=== PATIENT | male | born 1980 | race Caucasian/White ===

== ENCOUNTER 2019-03-16 19:22 | Inpatient (IN) | payer MEDICARE, MEDICAID ==
[~2019-03-16 19:22] MED LIST: Potassium Chloride 40 MEQ in Sodium Chloride 0.9% 250 ML 250 ML IVPB SCH
[2019-03-16] MEDS ORDERED: Rocuronium Bromide 50 MG/5 ML VIAL ONE (19:36)
--- NOTE | 2019-03-16 20:19 | RAD ---
Chest one view HISTORY: Hyperglycemia. Overdose. FINDINGS: Cardiac silhouette is magnified by projection. Pulmonary vasculature is unremarkable. Media stinum is midline. Tip of an endotracheal catheter overlies the thoracic inlet. Nasogastric tube descends to the abdomen. Mild bibasilar linear atelectasis. No evidence of pneumothorax. IMPRESSION: Endotracheal catheter and nasogastric tube are in good radiographic position. Mild bibasilar atelectasis.
[2019-03-16 20:29] LABS: Actual Bicarbonate (HCO3a) 13.3 mEq/L (22-28); Analyzer IN Cardio ER; Calcium, Ionized 1.41 mmol/L (1.12-1.30); Carboxyhemoglobin (COHb) 0.1 gm% (0.0-3.0); Hemoglobin (Hb) 19.2 g/dL (14.0-18.0); O2 Tension (PaO2) 92.3 mmHg (80.0-100.0); Potassium - ABG Lab 2.94 mmol/L (3.70-5.30)
--- NOTE | 2019-03-16 20:45 | CT ---
CT head noncontrast HISTORY: Altered mental status. Overdose. FINDINGS: Very subtle linear hyperdensity associated with the sulci of the posterior aspect of the le ft frontal lobe and the anterior aspect of the left temporal lobe. Ventricles are unremarkable. Septum pellucidum is midline. Visualized paranasal sinuses remain well-aerated. IMPRESSION: Subtle gyriform hyperdense areas associated with the left frontal and temporal lobes favo red to represent a very small amount of subarachnoid hemorrhage. Cause is not evident. Please consider short-term CT follow-up. Findings were called to Dr. Puga in the emergency department at 2040 hours. Code CR.
[2019-03-16 20:56] LABS: Hemoglobin 18.9 g/dL (14.0-18.0); Mean Corpuscular HGB CONC 30.2 g/dL (32.0-36.0); Mean Corpuscular Hemoglobin 31.2 pg (27.0-31.0); Platelet Count 208 thou/uL (130-400); RBC Distribution Width 13.2 % (11.5-14.5); Red Blood Cell (RBC) Count 6.06 mill/uL (4.70-6.10); White Blood Cell (WBC) Count 15.9 thou/uL (4.8-10.8)
[2019-03-16 21:08] LABS: Acetaminophen Less than 6.0 mcg/mL (10.0-30.0); Alcohol Less than 10 mg/dL (Less than 10); Magnesium 3.2 mg/dL (1.6-2.6); Salicylate Less than 8.0 mg/dL (15.0-30.0)
[2019-03-16 21:10] LABS: ALT (SGPT) 30 U/L (8-55); AST (SGOT) 16 U/L (5-34); Albumin 4.6 g/dL (3.5-5.0); Alkaline Phosphatase 189 U/L (40-150); Anion Gap 30 mmol/L (10-20); BUN (Urea Nitrogen) 24 mg/dL (8.9-20.6); Bilirubin, Total 0.7 mg/dL (0.2-1.2); CK (CPK) 370 U/L (30-200); Calc. Creatinine Clearance 0 mL/min (70-130); Calcium 11.2 mg/dL (7.8-10.44); Carbon Dioxide 12 mmol/L (22-29); Chloride 95 mmol/L (98-107); Estimated GFR-MDRD 20; Lipase 784 U/L (8-78); Protein, Total 8.6 g/dL (6.0-8.3); Sodium 134 mmol/L (136-145)
[2019-03-16 21:10] LABS: Bacteria/HPF None Seen HPF (None Seen); Bilirubin Negative (Negative); Blood, Urine 2+ (Negative); Clarity Clear (Clear); Glucose, Urine (Dipstick) Greater than 1000 mg/dL (Negative); Leukocyte Negative Leu/uL (Negative); Nitrite Negative (Negative); Protein, Urine (Dipstick) 20 mg/dL (Neg-Trace); RBC/HPF 0-3 HPF (0-3); Squamous Epithelial 0-3 HPF (0-3); Urobilinogen Normal mg/dL (Less than 2); WBC/HPF 0-3 HPF (0-3)
[2019-03-16 21:12] LABS: Puncture Site LRA; pH, Arterial 7.18 (7.35-7.45)
[2019-03-16 21:16] LABS: Band 3 % (5-11); Large Platelets SLIGHT; Lymphocytes 3 % (21-51); MDiff Complete? YES; Macrocytosis SLIGHT = 6-15 cells (100X) (0-5/hpf); Mean Platelet Volume 12.6 fL (7.4-10.4); Monocytes 1 % (0-10); Neutrophil 93 % (42-75); Platelet Morphology Comment Appears Adequate; Polychromasia SLIGHT = 2-3 cells (100X) (0-2/hpf)
[2019-03-16 21:17] LABS: Glucose 1944 mg/dL (70-105); Potassium 2.7 mmol/L (3.5-5.1)
[2019-03-16 21:20] LABS: Amphetamine Not Detected (NotDetected); Barbiturates Screen Not Detected (NotDetected); Benzodiazepine Screen Not Detected (NotDetected); Cocaine Metabolite Screen Not Detected (NotDetected); Medtox Control Line Valid? VALID (VALID); Medtox Reader # READER 1; Methadone Not Detected (NotDetected); Methamphetamine Not Detected (NotDetected); Opiate Screen Detected (NotDetected); Oxycodone Screen Not Detected (NotDetected); Phencyclidine (PCP) Not Detected (NotDetected); THC/Cannabinoid Screen Not Detected (NotDetected); Tricyclic Screen Not Detected (NotDetected)
--- NOTE | 2019-03-16 21:54 | CT ---
CT cervical spine noncontrast HISTORY: Syncope. Neck injury. FINDINGS: Vertebral body heights and alignment are maintained. Cervicothoracic junction is intact. No acute fracture or dislocation. Endotracheal catheter and nasogastric tube are partially visualized. IMPRESSION: No acute osseous abnormalities are demonstrated.
[2019-03-16 22:49] LABS: Anion Gap 32 mmol/L (10-20); BUN (Urea Nitrogen) 23 mg/dL (8.9-20.6); Calc. Creatinine Clearance 0 mL/min (70-130); Calcium 10.4 mg/dL (7.8-10.44); Chloride 107 mmol/L (98-107); Estimated GFR-MDRD 24; Potassium 3.5 mmol/L (3.5-5.1); Sodium 144 mmol/L (136-145)
[2019-03-16] MEDS ORDERED: Acetaminophen 325 MG/10.15 ML UDCUP PO PRN (22:56)
[2019-03-16] MEDS ORDERED: CCU Electrolyte Replacement 1 EACH IVPB SCH (22:56)
[2019-03-16] MEDS ORDERED: Potassium Chloride 40 MEQ in Sodium Chloride 0.9% 250 ML 250 ML IVPB PRN (23:00)
[2019-03-16] MEDS ORDERED: Potassium Chloride 40 MEQ in Premix Bag 1 BAG IVPB PRN (23:00)
[2019-03-16] MEDS ORDERED: PHOS-NAK 1 PKT PACK PO PRN ×2 (23:00)
[2019-03-16] MEDS ORDERED: Potassium Phosphate 12 MMOL in Sodium Chloride 0.9% 250 ML 250 ML IV PRN (23:00)
[2019-03-16] MEDS ORDERED: CCU ELECTROLYTE REPLACEMENT PROTOCOL FS PRN (23:00)
[2019-03-16] MEDS ORDERED: Magnesium Oxide 400 MG TAB PO PRN ×2 (23:00)
[2019-03-16] MEDS ORDERED: Insulin Regular 300 UNITS/3 ML VIAL IVP SCH (23:00)
[2019-03-16] MEDS ORDERED: Magnesium 2 GM/50 ML 2 GM in Premix Bag 1 BAG IVPB PRN (23:00)
[2019-03-16] MEDS ORDERED: Potassium Phosphate 9 MMOL in Sodium Chloride 0.9% 100 ML IVPB PRN (23:00)
[2019-03-16] MEDS ORDERED: Potassium Phosphate 15 MMOL in Sodium Chloride 0.9% 250 ML 250 ML IV PRN (23:00)
[2019-03-16] MEDS ORDERED: Potassium Chloride 20 MEQ TAB PO PRN (23:00)
[2019-03-16 23:01] LABS: Carbon Dioxide 9 mmol/L (22-29); Glucose 1457 mg/dL (70-105)
[2019-03-16] MEDS ORDERED: Propofol 1,000 MG/100 ML VIAL IV ONE (23:01)
[2019-03-16] MEDS ORDERED: DISCONTINUE PREVIOUS NARCOTIC PAIN MEDICATIONS AND BENZODIAZEPINES FS SCH (23:22)
[2019-03-16] MEDS ORDERED: Morphine 2 MG/ML SYRINGE SLOW IVP PRN (23:22)
[2019-03-16] MEDS ORDERED: Fentanyl BOLUS 250 ML IVPB PRN (23:22)
[2019-03-16] MEDS ORDERED: Propofol BOLUS 1,000 MG/100 ML VIAL IV PRN (23:22)
[2019-03-16] MEDS ORDERED: hydrALAZINE 20 MG/ML VIAL SLOW IVP PRN (23:29)
[2019-03-16] MEDS ORDERED: Sodium Chloride 0.9% 1,000 ML IV SCH (23:30)
[2019-03-16] MEDS: HUMULIN R 100 UNITS in Sodium Chloride 0.9% 100 ML IVPB SCH (23:33)
[2019-03-17 00:15] LABS: Anion Gap 30 mmol/L (10-20); BUN (Urea Nitrogen) 23 mg/dL (8.9-20.6); Calc. Creatinine Clearance 59 mL/min (70-130); Calcium 10.2 mg/dL (7.8-10.44); Carbon Dioxide 11 mmol/L (22-29); Chloride 109 mmol/L (98-107); Estimated GFR-MDRD 23; Phosphorus 2.8 mg/dL (2.3-4.7); Potassium 3.1 mmol/L (3.5-5.1); Sodium 147 mmol/L (136-145)
[2019-03-17 00:17] LABS: Glucose 1361 mg/dL (70-105)
[2019-03-17] MEDS: Sodium Bicarbonate 75 MEQ in Sodium Chloride 0.45% 1,000 ML IV SCH ×2 (00:29→00:47)
[2019-03-17] MEDS ORDERED: Dextrose 50% Abboject 50 ML SYRINGE SLOW IVP PRN (00:47)
[2019-03-17] MEDS ORDERED: Dextrose 5 %-0.45 % NaCl 1,000 ML IV PRN (00:47)
[2019-03-17] MEDS ORDERED: Sodium Chloride 0.9% 1,000 ML IV PRN ×4 (00:47)
[2019-03-17] MEDS ORDERED: Dextrose 5% in Water 1,000 ML IV PRN (00:47)
[2019-03-17] MEDS ORDERED: D5 1/2 NS w/20 mEq KCL 1,000 ML IV PRN (00:47)
[2019-03-17] MEDS ORDERED: NS 0.9% w/ 20 MEQ KCL 1,000 ML/1,000 ML BAG IV PRN ×2 (00:47)
[2019-03-17] MEDS ORDERED: Potassium Chloride 20 MEQ in Premix Bag 1 BAG IVPB SCH (01:00)
[2019-03-17 02:09] LABS: Anion Gap 25 mmol/L (10-20); BUN (Urea Nitrogen) 24 mg/dL (8.9-20.6); Calc. Creatinine Clearance 58 mL/min (70-130); Calcium 10.4 mg/dL (7.8-10.44); Carbon Dioxide 11 mmol/L (22-29); Chloride 117 mmol/L (98-107); Estimated GFR-MDRD 23; Sodium 150 mmol/L (136-145)
[2019-03-17 02:11] LABS: Glucose 1174 mg/dL (70-105); Potassium 2.9 mmol/L (3.5-5.1)
--- NOTE | 2019-03-17 02:12 | CON ---
DATE OF CONSULTATION: This is Jordin Centeno PA-C dictating a report for Jas Castellon MD. This is a 50-minute initial patient evaluation of which greater than 50% of the exam was spent in counseling and coordinating the patient's care. Remainder of the exam was spent in review of the patient's medical records, and formulation of treatment plan as well as review of appropriate imaging studies. CHIEF COMPLAINT: Altered mental status with likely MS Contin overdose and left subarachnoid hemorrhage. HISTORY OF PRESENT ILLNESS: Mr. Leung is a 39-year-old male, who presents to [facility] for the above complaints. His medical history comes from review of his medical records as well as his fiancee who is at bedside. Apparently, the patient just recently moved from [place], but has a history of undergoing 3 lumbar spine surgeries and deals with chronic back pain. He has been under the care of Pain Management in the [place] area and was out of pain medication for 2 or more weeks and they had changed his medication to morphine orally. He apparently has not been on his oxycodone for the past few weeks. Nonetheless, the patient's medication was refilled on Sunday and through the weekend, the patient's fiancee noted they have been acting somewhat strange, in that he had some nausea, vomiting, diarrhea, and just overall looked fatigued. She was away most of the day today and when she returned home, found the patient on the bathroom floor, minimally responsive. She then called EMS and the patient was intubated in the emergency room given his respiratory failure. There was no obvious trauma. The patient does typically fall and now intermittently uses a cane or walker when his back pain is severe. It is unclear if the patient has known diabetes. Pertinent lab values include blood glucose of 1944, likely placing the patient in DKA. Neurosurgically, review of the patient's head CT again showed some what appears to be subarachnoid hemorrhage in the left parietal region and without any significant mass effect or midline shift. His ventricles are within normal limits. The patient has no family history of aneurysms that his fiancee is aware of. PHYSICAL EXAMINATION: The patient is extremely drowsy. He will, however, open his eyes to voice. He is intubated. His GCS currently is E4 V1 M6, which makes his GCS 11T. He follows commands in all extremities equally as well as spontaneously moves all extremities. He has slightly more brisk on the right than the left interestingly. His pupils are equal, round, and sluggishly reactive. There are no obvious signs of head trauma. He is not in an Speed collar. IMPRESSION AND DIAGNOSES: 1. Altered mental status with left subarachnoid hemorrhage. 2. Significantly elevated blood glucose, likely indicative of diabetic ketoacidosis. 3. Respiratory failure. PLAN: I have discussed the patient's case and imaging with Dr. Castellon. We would like to get a CTA to ensure that the patient does not have any type of aneurysm. However, given his decreased kidney function, we will wait until this improved to give him further contrast dye. Review of his cervical spine CT is negative for fracture, so we will not place any type of cervical spine collar. Our medical colleagues will admit the patient. According to the patient's fiancee, he has not voiced any type of suicidal ideation. From a neurosurgical standpoint, we will follow up on the CTA. The patient's systolic blood pressure should ideally remain less than 140. Head of bed elevated at 30 degrees. We will check back on the patient, but please call with any changes in the patient's neurologic status. Job ID: [id number]
[2019-03-17 02:54] LABS: Hemoglobin A1c 16.9 % (4.0-6.0)
[2019-03-17 03:08] LABS: Anion Gap 24 mmol/L (10-20); BUN (Urea Nitrogen) 24 mg/dL (8.9-20.6); Calc. Creatinine Clearance 59 mL/min (70-130); Calcium 10.3 mg/dL (7.8-10.44); Carbon Dioxide 10 mmol/L (22-29); Chloride 120 mmol/L (98-107); Estimated GFR-MDRD 23; Sodium 151 mmol/L (136-145)
[2019-03-17 03:12] LABS: Glucose 1130 mg/dL (70-105)
--- NOTE | 2019-03-17 04:17 | HP ---
CHIEF COMPLAINT: Altered mental status. HISTORY OF PRESENT ILLNESS: The patient currently is intubated, unable to provide any history. All history is through the charts and per the ER documentation. Apparently, the patient was found obtunded. He has a history of diabetes and he also has significant amount of back pain and he has been prescribed 60 mg of morphine, which he got filled, 03/14/2019 and was found to be missing 30 pills, and the patient has been currently followed by Pain Management. The patient was with his girlfriend, who recently just moved in with him. Again, there was nobody in the bedside to ask any questions. The patient was found unresponsive at this time. For respiratory protection, he was intubated. PAST MEDICAL HISTORY: He has a history of back pain, chronic and diabetes, which I am unclear if he has type 1, type 2, or is taking any medications. SOCIAL HISTORY: Again per charts, there is no history of alcohol use, drug use, or any other smoking history. Unknown code status since the patient again lives alone. PSYCHIATRIC HISTORY: Unknown if this was a suicidal attempt. PAST SURGICAL HISTORY: He has multiple orthopedic surgeries in the past. ALLERGIES: PER NOTES, NO KNOWN DRUG ALLERGIES. MEDICATIONS: Unknown. The only thing that we know is he takes morphine 60 mg twice a day. PHYSICAL EXAMINATION: VITAL SIGNS: Temperature of 98.8, his respirations are 20, pulse of 120, blood pressure 108/79. He is 99% on 50% FiO2. GENERAL: He is intubated; however, upon sternal rubbing him, he does open his eyes. His pupils are equal and reactive to light. CV: S1 and S2 present. Sinus tach. No murmurs heard. LUNGS: Clear to auscultation. No rhonchi or wheezes noted. ABDOMEN: Soft. Bowel sounds are present x2. No pain upon palpation. EXTREMITIES: No edema. Pedal pulses are present x2. NEUROVASCULAR: The patient does open his eyes on sternal rub, that is all I could do since he is on a fentanyl drip. REVIEW OF SYSTEMS: Unable to obtain. LABORATORY DATA: WBCs of 15.9, hemoglobin of 18.8, hematocrit of 62.7, his platelets are 208. His bands are 3. Chemistry; sodium of 134, potassium of 2.7, BUN of 24, creatinine of 3.54, bicarb of 12, anion gap of 30. His sugar was 1944, calcium of 11.2. CK was 370. His serum osmolality was 411. He did have a urine, which appeared to be stable. His beta hydroxybutyric acid was 6.4, and his acetaminophen salicylate and alcohol level was within normal limits. IMAGING DATA: He did have a CT chest, CT head and CT cervical spine. CT chest x-ray did not indicate any acute abnormalities. CT head and cervical spine were done. CT head indicated there is a subtle hypodense area associated in the left frontal and temporal lobes given the presence of very small subarachnoid hemorrhage. At this time, the patient was supposed to get a CTA; however, due to his elevated creatinine, he was unable to do so. His CT cervical spine did not show any acute abnormalities. ASSESSMENT AND PLAN: The patient is a 39-year-old male, who presents to the hospital with change in mental status. 1. Acute respiratory failure. This is most likely secondary to his underlying drug overdose. The patient had an NG tube placed, which had significant amount of pill fragments out. He is currently on FiO2 of 50. Pulmonary Critical Care has been notified by the ER. His pH of 7.18, pCO2 of 36, PO2 of 92.3. Critical Care to manage in regard to his current intubation. 2. Anion gap metabolic acidosis. This is most likely secondary to his diabetic ketoacidosis and also combination to his overdose. I will give him some insulin IV and start him on an insulin drip. We will aggressively replace the potassium. I have spoken with the Manager [employer] given his repeat BMP that indicated severe acidosis. I will start him also on a bicarb drip. We will check BMPs every 2 hours for closer monitoring, especially of his electrolytes. I will also check a phosphorus. His magnesium was higher than normal limits. 3. Subarachnoid hemorrhage, mild. Neurosurgery has been consulted. They recommended a CTA; however, given the patient's creatinine, that would not be obtainable right now. We will continue to hydrate the patient. 4. Acute kidney injury. This is most likely secondary to possible dehydration. The patient received 4 L of normal saline and we will start him on some half-normal saline with a bicarb drip for now. 5. Diabetes. Again, we will check a hemoglobin A1c. I am unclear if this is type 1 or type 2, mostly appears to be type 2. I am unclear what he takes for his diabetes. 6. I will start him on some subcu heparin for DVT prophylaxis. Also, I will just give him some little bit of antibiotics in case if he aspirate it, which I believe is just prophylactic. Job ID: [id number]
--- NOTE | 2019-03-17 04:51 | PDOC.EVN ---
Event Note - Event Note Event Note: Pt's sodium worsening. I had discussed the plan with the nurse that i will start pt on bicarb drip and not to follow the fluid protocol that is suggested in DKA protocol. I also discussed that i would be replacing the electrolytes. Pt was on 1/2 ns bicarb and ns with 20meq of kcl. I will not be able to give the pt d5w due to his elevated sugars. If his na continues to worsen will start him on free water.
[2019-03-17 04:59] LABS: Anion Gap 20 mmol/L (10-20); BUN (Urea Nitrogen) 23 mg/dL (8.9-20.6); Calc. Creatinine Clearance 59 mL/min (70-130); Carbon Dioxide 15 mmol/L (22-29); Chloride 121 mmol/L (98-107); Estimated GFR-MDRD 23; Sodium 153 mmol/L (136-145)
[2019-03-17 05:02] LABS: Glucose 965 mg/dL (70-105)
[2019-03-17] MEDS ORDERED: Sodium Bicarbonate 75 MEQ in Sodium Chloride 0.45% 1,000 ML IV SCH (05:12)
[2019-03-17] MEDS: Piperacillin/Tazobactam 3.375 GM in Sodium Chloride 0.9% 100 ML IVPB SCH ×4 (05:21→19:54)
[2019-03-17] MEDS: Potassium Chloride 20 MEQ in Premix Bag 1 BAG IVPB SCH ×2 (05:25→09:45)
[2019-03-17] MEDS ORDERED: Potassium Chloride 40 MEQ in Sodium Chloride 0.45% 1,000 ML IVPB SCH (05:30)
[2019-03-17 05:32] LABS: Actual Bicarbonate (HCO3a) 20.4 mEq/L (22-28); Base Excess (BEa) -4.6 mEq/L (-2.0 to +3.0); Calcium, Ionized 1.32 mmol/L (1.12-1.30); Carboxyhemoglobin (COHb) 0.3 gm% (0.0-3.0); Hemoglobin (Hb) 18.8 g/dL (14.0-18.0); O2 Tension (PaO2) 78.3 mmHg (80.0-100.0); Potassium - ABG Lab 2.96 mmol/L (3.70-5.30); pH, Arterial 7.35 (7.35-7.45)
[2019-03-17 05:38] LABS: Puncture Site LBA
[2019-03-17] MEDS: HUMULIN R 100 UNITS in Sodium Chloride 0.9% 100 ML IVPB SCH ×2 (06:21→22:29)
[2019-03-17 07:07] LABS: Glucose 840 mg/dL (70-105)
[2019-03-17 07:57] LABS: Glucose 798 mg/dL (70-105)
[2019-03-17 09:01] LABS: Glucose 718 mg/dL (70-105)
--- NOTE | 2019-03-17 09:02 | CON ---
DATE OF CONSULTATION: HISTORY OF PRESENT ILLNESS: Eber Leung is a 39-year-old gentleman, whom I was contacted about 10:[address] Puga, ER physician, stated the patient presented with altered mental status. He was intubated, then found to have a blood sugar of 900. Potassium was low. In the ER, started the patient on insulin because of the low potassium. He is now in the ICU, intubated in the vent on an insulin drip at 14 units/hour. There were no family members present at the bedside, but apparently he took an unknown quantity of morphine, which he has for chronic back pain and 30 tablets were missing. He apparently fell. He normally takes morphine 60 mg two a day, prescribed by an unknown physician. Unable to get any other medical history. PAST MEDICAL HISTORY: Pertinent for apparently chronic back pain. I see no history of diabetes. PAST SURGICAL HISTORY: Previous surgeries apparently some kind of orthopedic surgery. . SOCIAL HISTORY: Tobacco, unknown. Drug abuse, unknown. REVIEW OF SYSTEMS: Unobtainable. He is intubated in the vent and sedated on Diprivan and fentanyl. PHYSICAL EXAMINATION: VITAL SIGNS: Pulse 135, blood pressure 110/85, saturations are 96%, and respirations 19. CHEST: Decreased breath sounds. No wheezing. CARDIAC: Normal S1 and S2. No gallops. ABDOMEN: No masses. LABORATORY DATA: X-ray was clear. A pO2 is 78, pCO2 is 38, pH is 7.35 on 50%, rate 24. Sodium is 153, potassium is 3, creatinine is 3, and blood sugar is elevated at 798. His CT head showed some hyperdensity in the left frontal area may be small hemorrhage. X-ray pretty much unremarkable. Cervical spine was not done, no changes seen. IMPRESSION: 1. Uncontrolled diabetes. 2. Renal failure. 3. History of unknown quantity of ingestion of morphine. 4. Chronic back pain. PLAN: We will hold sedation. Started long acting Lantus. Continue IV insulin. Correct electrolytes; potassium, magnesium, and phosphorus. Supportive care. He is on empiric antibiotics, which he will continue, though I see no evidence of any infection at this stage. TIME SPENT: This is a 45-minute critical care time. Job ID: [id number]
[2019-03-17] MEDS: Insulin Glargine 10 UNITS in Pre-Filled Syringe 1 EACH SC SCH ×2 (09:11→20:28)
[2019-03-17 09:34] LABS: Anion Gap 18 mmol/L (10-20); BUN (Urea Nitrogen) 24 mg/dL (8.9-20.6); Calc. Creatinine Clearance 62 mL/min (70-130); Carbon Dioxide 17 mmol/L (22-29); Chloride 122 mmol/L (98-107); Estimated GFR-MDRD 25; Potassium 3.4 mmol/L (3.5-5.1); Sodium 154 mmol/L (136-145)
[2019-03-17 09:38] LABS: Glucose 757 mg/dL (70-105)
--- NOTE | 2019-03-17 09:56 | PRG ---
DATE OF SERVICE: 03/17/2019 This is a 30-minute initial visit note, in which 30 minutes were spent reviewing the imaging record, evaluation, examination of the patient, and formulation of plan. Greater than 50% time was spent in counseling on Eber Leung. SUBJECTIVE: Mr. Leung was admitted last night for a narcotic overdose. He also was in DKA. Head CT demonstrates no external findings of trauma, however, evidence of subarachnoid hemorrhage and subdural clot anterior to the temporal lobe with some sylvian fissure blood. I have asked for a CT angiogram to make sure that we are not dealing with a ruptured aneurysm that led to the patient taking narcotics. Subsequent to that, loss of consciousness. This has been ordered, but is limited due to the patient's reduced renal function. We will obtain the CTA when possible from a nephrology standpoint. I should note that CT scan of the cervical spine demonstrates no acute abnormality. He does have his eyes closed this morning, but follows commands briskly in all 4 extremities. This is an improvement. We will continue to follow. DIAGNOSIS: Subarachnoid hemorrhage with narcotic overdose. Job ID: [id number]
[2019-03-17] MEDS: Potassium Chloride 40 MEQ in Sodium Chloride 0.45% 1,000 ML IV SCH ×2 (10:02→19:55)
[2019-03-17] MEDS: Lorazepam 2 MG/ML VIAL SLOW IVP PRN ×5 (10:43→22:29)
[2019-03-17 10:44] LABS: Glucose 688 mg/dL (70-105)
[2019-03-17] MEDS ORDERED: Acetaminophen 650 MG/20.3 ML UDCUP ONE (11:00)
[2019-03-17] MEDS ORDERED: Famotidine/PF 20 mg/2ml Vial SLOW IVP SCH (11:00)
--- NOTE | 2019-03-17 11:59 | ULT ---
US Renal Bilateral STANDARD: 03/17/2019 5:17 AM CLINICAL HISTORY: Acute kidney injury. STUDY: Renal ultrasound COMPARISON: None. FINDINGS: Right kidney: Echogenicity: Normal. Masses/cysts: None. Hydronephrosis: None. Calcifications: None. Length: 11.6 cm Left kidney: The left kidney cannot be visualized secondary to bowel gas. The urinary bladder is decompressed by Quesada catheter. IMPRESSION: No significant right renal abnormality
[2019-03-17 12:09] LABS: Glucose 609 mg/dL (70-105)
[2019-03-17 12:41] LABS: Glucose 567 mg/dL (70-105)
[2019-03-17 13:41] LABS: Anion Gap 18 mmol/L (10-20); BUN (Urea Nitrogen) 24 mg/dL (8.9-20.6); Calc. Creatinine Clearance 56 mL/min (70-130); Calcium 9.6 mg/dL (7.8-10.44); Carbon Dioxide 17 mmol/L (22-29); Chloride 125 mmol/L (98-107); Estimated GFR-MDRD 22; Glucose 525 mg/dL (70-105); Potassium 4.2 mmol/L (3.5-5.1); Sodium 156 mmol/L (136-145)
[2019-03-17 14:35] LABS: Anion Gap 19 mmol/L (10-20); BUN (Urea Nitrogen) 25 mg/dL (8.9-20.6); Calc. Creatinine Clearance 54 mL/min (70-130); Calcium 9.2 mg/dL (7.8-10.44); Carbon Dioxide 13 mmol/L (22-29); Chloride 126 mmol/L (98-107); Estimated GFR-MDRD 21; Glucose 471 mg/dL (70-105); Potassium 4.7 mmol/L (3.5-5.1); Sodium 153 mmol/L (136-145)
[2019-03-17] MEDS ORDERED: Sodium Bicarbonate 50 MEQ in Sterile Water Injection 1,000 ML IV SCH (15:00)
[2019-03-17 15:35] LABS: Glucose 423 mg/dL (70-105)
[2019-03-17] MEDS: Propofol 1,000 MG/100 ML VIAL IV PRN ×2 (16:25→23:41)
[2019-03-17] MEDS: fentaNYL Citrate/PF 2,000 MCG in Sodium Chloride 0.9% 60 ML IV SCH (16:40)
[2019-03-17] MEDS: Sodium Chloride 0.45% 1,000 ML IV SCH ×2 (17:13→22:32)
--- NOTE | 2019-03-17 17:58 | PDOC.HOSPP ---
- Subjective non-verbal Subjective: Pt seen for followup re: DKA. Intubated, unable to provide history, could not complete ROS. - Objective Vital Signs & Weight: Vital Signs (12 hours) Temp Pulse Resp BP Pulse Ox 03/17/19 14:08 143 H 85/68 L 03/17/19 10:34 145 H 100/71 03/17/19 07:42 24 H 96 03/17/19 07:07 135 H 93/69 03/17/19 07:00 99.6 F 03/17/19 06:00 24 H Weight Admit Weight 275 lb 5.718 oz Weight 275 lb 5.718 oz Most Recent Monitor Data Heart Rate from ECG 136 NIBP 95/62 NIBP BP-Mean 73 Respiration from ECG 7 SpO2 97 I&O: 03/16/19 03/17/19 03/18/19 06:59 06:59 06:59 Intake Total 572.9 900 Output Total 1760 505 Balance -1187.1 395 Result Diagrams: 03/16/19 20:13 03/17/19 15:14 Additional Labs: Accuchecks 03/17/19 03/17/19 03/16/19 17:04 15:53 23:34 POC Glucose 320 H 502 H Greater than 550 H* 03/16/19 19:37 POC Glucose Greater than 550 H* Labs and MARs reviewed by me EKG Reviewed by me: Yes (Tele: sinus tachycardia) ROS - Review of Systems All systems: All other ROS were reviewed and found negative. - Medication Medications: Active Medications Generic Name Dose Route Start Last Admin Trade Name Freq PRN Reason Stop Dose Admin Fentanyl Citrate 2,000 mcg/ 100 mls @ 0 mls/hr 03/16/19 19:51 03/17/19 16:40 Sodium Chloride IV 04/15/19 19:51 100 mls INF YG Administration Protocol Per Protocol Insulin Human Regular 100 101 mls @ 0 mls/hr 03/16/19 23:00 03/17/19 06:21 units/ Sodium Chloride IVPB 101 mls INF YG Administration Protocol Titrate Piperacillin Sod/Tazobactam 100 mls @ 200 mls/hr 03/17/19 02:00 03/17/19 12: 35 Sod 3.375 gm/ Sodium Chloride IVPB 100 mls 0200,0800,1400,2000 YG Administration Insulin Glargine 10 units/ 0.1 mls @ 0 mls/hr 03/17/19 09:00 03/17/19 09:11 Miscellaneous Medication SC 0.1 mls BID YG Administration Sodium Chloride 1,000 mls @ 200 mls/hr 03/17/19 17:00 03/17/19 17:13 1/2 Normal Saline IV 1,000 mls .Q5H YG Administration Lorazepam 2 mg 03/16/19 23:22 03/17/19 16:25 Ativan SLOW IVP 04/15/19 23:22 2 mg Q1H PRN Administration Breakthrough agitation Propofol 1,000 mg 03/16/19 23:22 03/17/19 16:25 Diprivan IV 04/15/19 23:22 1,000 mg INF PRN Administration TO ACHIEVE GOAL RASS Protocol Sodium Chloride 10 ml 03/17/19 09:00 03/17/19 10:02 Flush - Normal Saline IVF 10 ml Q12HR YG Administration - Exam Eye: anicteric sclera ENT: normocephalic atraumatic (ETT+) Neck: supple Heart: no rubs (S1, S2, reg, tachy) Respiratory: CTAB Gastrointestinal: soft Psychiatric: somnolent Hosp A/P (1) DKA (diabetic ketoacidoses) Code(s): E11.10 - TYPE 2 DIABETES MELLITUS WITH KETOACIDOSIS WITHOUT COMA Status: Acute (2) Electrolyte abnormality Code(s): E87.8 - OTH DISORDERS OF ELECTROLYTE AND FLUID BALANCE, NEC Status: Acute (3) LINNEA (acute kidney injury) Code(s): N17.9 - ACUTE KIDNEY FAILURE, UNSPECIFIED Status: Acute (4) Intracranial bleed Code(s): I62.9 - NONTRAUMATIC INTRACRANIAL HEMORRHAGE, UNSPECIFIED Status: Acute (5) Acute respiratory failure with hypoxia Code(s): J96.01 - ACUTE RESPIRATORY FAILURE WITH HYPOXIA Status: Acute - Plan continue antibiotics, GI proph DKA improving, continue IV fluids and insulin. Replace potassium, magnesium. Pt is on half normal saline due to hypernatremia. Follow creatinine. Pt will need CT angio brain, waiting for creatinien to improve.
[2019-03-17 18:26] LABS: Anion Gap 19 mmol/L (10-20); BUN (Urea Nitrogen) 28 mg/dL (8.9-20.6); Calc. Creatinine Clearance 47 mL/min (70-130); Calcium 9.4 mg/dL (7.8-10.44); Carbon Dioxide 20 mmol/L (22-29); Chloride 124 mmol/L (98-107); Estimated GFR-MDRD 18; Glucose 430 mg/dL (70-105); Potassium 4.6 mmol/L (3.5-5.1); Sodium 158 mmol/L (136-145)
[2019-03-17] MEDS: Acetaminophen 1,000 MG in Premix Bag 1 BAG IVPB PRN ×2 (18:28→22:47)
[2019-03-17 21:37] LABS: Glucose 666 mg/dL (70-105)
--- NOTE | 2019-03-17 22:13 | PRG ---
DATE OF SERVICE: 03/17/2019 SUBJECTIVE: Eber Leung remain mechanically ventilated this afternoon. I was asked by the pharmacist and the nurses to check on him. His glucose has come down from 1900 to 320 at 5 o'clock. I recommended holding his insulin at that point. He starts drifting back up. We can restart his insulin at a lower rate. He also was switched completely to free water. His osmolality is so high with his glucoses that we really cannot correct him rapidly. He should actually be corrected quite slowly. He has severe intravascular volume depletion as well with this, which will hopefully gradually improve. He predominantly now has a hyperchloremic acidosis. This should improve with hydration. His insulin can be restarted, but we really should be satisfied with the glucose that is between 600 and 800 in the first 24 hours probably and then half of that in the next 24 hours to avoid brain swelling or try to minimize the possibility. The same thing holds true for correction of his hypernatremia. His calculated sodium is actually quite high, and saline would be hypoosmotic to his serum osmolality. We will continue to follow him in the Critical Care Unit. Job ID: [id number] [facility]
[2019-03-17] MEDS ORDERED: Insulin Regular 300 UNITS/3 ML VIAL IVP SCH (22:30)
[2019-03-17 22:47] LABS: Glucose 737 mg/dL (70-105)
[2019-03-17 23:48] LABS: Glucose 758 mg/dL (70-105)
[2019-03-18 01:03] LABS: Glucose 764 mg/dL (70-105)
[2019-03-18 01:36] LABS: Glucose 764 mg/dL (70-105)
[2019-03-18] MEDS: Piperacillin/Tazobactam 3.375 GM in Sodium Chloride 0.9% 100 ML IVPB SCH ×2 (01:54→08:17)
[2019-03-18 02:48] LABS: Glucose 741 mg/dL (70-105)
[2019-03-18 03:19] LABS: Glucose 716 mg/dL (70-105)
[2019-03-18 04:13] LABS: Glucose 713 mg/dL (70-105)
[2019-03-18] MEDS: Propofol 1,000 MG/100 ML VIAL IV PRN ×3 (04:14→17:02)
[2019-03-18] MEDS: Sodium Chloride 0.45% 1,000 ML IV SCH ×3 (04:16→19:25)
[2019-03-18] MEDS: Lorazepam 2 MG/ML VIAL SLOW IVP PRN ×4 (04:55→19:41)
[2019-03-18 06:11] LABS: Glucose 635 mg/dL (70-105)
--- NOTE | 2019-03-18 07:12 | CT ---
CT HEAD WITHOUT CONTRAST: CT [place] OF [place] WITH 3D VOLUME RENDERING WITH CONTRAST: INDICATIONS: Subarachnoid hemorrhage. Followup. COMPARISON: Reference made to head CT done two days prior. FINDINGS: There is slight residua of hyperdensity within the sulci of the left frontal parietal lobe and the alegre perior left temporal lobe, as residua from prior subarachnoid hemorrhage. No new mass effect or midl ine shift. The ventricular system is of normal volume. The terminal bilateral ICA are patent. The imaged distal vertebral arteries and the basilar artery a re of normal caliber. No significant stenosis of either MCA, JULIO, or [employer]. There is redundancy and t ortuosity of the convergence of the bilateral JULIO, and there is a tiny vascular outpouching at the ex pected region of the anterior communicating artery, although utilizing the reformatted imaging data, there is suggestion of small, tortuous vessels emanating from this region, favoring redundant, tortuo us vasculature and the possibility of an infundibulum. It is difficult to entirely exclude a small a neurysm within the ACOM region, however. IMPRESSION: Prominent redundancy and tortuosity of the small anterior circulation vasculature, at the region of t he convergence of the anterior communicating artery bilaterally, as discussed above, with suggestion of a small region of tortuosity/infundibulum, favored over aneurysm, given the apparent continuum of arterial structures emanating from this region; however, the possibility of a minute aneurysm about t he ACOM region is difficult to entirely exclude. Recommend conventional cerebral angiogram, to furth er evaluate, in light of the patient's history of a recent subarachnoid hemorrhage. POS: HODA
[2019-03-18 07:16] LABS: Actual Bicarbonate (HCO3a) 17.2 mEq/L (22-28); Base Excess (BEa) -7.1 mEq/L (-2.0 to +3.0); CO2 Tension 32.1 mmHg (35.0-45.0); Carboxyhemoglobin (COHb) 0.9 gm% (0.0-3.0); Hemoglobin (Hb) 16.2 g/dL (14.0-18.0); O2 Tension (PaO2) 72.4 mmHg (80.0-100.0); Potassium - ABG Lab 4.25 mmol/L (3.70-5.30); pH, Arterial 7.35 (7.35-7.45)
[2019-03-18 07:18] LABS: ALV-art Gradient 172.675 (0-20); Puncture Site RRA
[2019-03-18 07:29] LABS: Albumin 2.9 g/dL (3.5-5.0); Anion Gap 25 mmol/L (10-20); BUN (Urea Nitrogen) 35 mg/dL (8.9-20.6); BUN/Creatinine Ratio 6.07; Calc. Creatinine Clearance 33 mL/min (70-130); Carbon Dioxide 11 mmol/L (22-29); Chloride 115 mmol/L (98-107); Estimated GFR-MDRD 11; Glucose 653 mg/dL (70-105); Phosphorus 1.7 mg/dL (2.3-4.7); Potassium 4.4 mmol/L (3.5-5.1); Sodium 147 mmol/L (136-145)
[2019-03-18] MEDS: Famotidine/PF 20 mg/2ml Vial SLOW IVP SCH (08:23)
--- NOTE | 2019-03-18 08:33 | RAD ---
CHEST ONE VIEW: INDICATIONS: Daily CCU examination. COMPARISON: Prior exam dated 03/16/2019. IMPRESSION: The patient remains intubated with gastric catheter placement. There is worsening bibasilar air spac e opacity, suspicious for atelectasis. This is likely related to hypoventilation on the examination. No pneumothorax is evident. POS: TPC
--- NOTE | 2019-03-18 09:01 | PRG ---
DATE OF SERVICE: 03/18/2019 SUBJECTIVE: Yesterday, his condition got slightly worse. He is mildly encephalopathic. He was sedated. OBJECTIVE: VITAL SIGNS: Pulse 128, blood pressure 180/100, saturations are 90%, and respirations 40. CHEST: Decreased breath sounds. CARDIAC: Sinus tach. ABDOMEN: Distended. LABORATORY DATA: X-ray shows right-sided pleural effusion. He has worsening renal function with minimal urine output. His creatinine is 5.7, it was 3.8 yesterday. His BUN is 35 and glucose is 653. A pO2 of 72, pCO2 of 32, pH 7.35 with a rate of 18, 40%, and 550 tidal volume. He had a CT head done last night, which shows stable findings. Subarachnoid hemorrhage. They may be considering an MRI at later time. IMPRESSION: 1. Acute renal failure. 2. Uncontrolled diabetes. Significant anion gap of 25. A pO2 of 72, pCO2 of 30%, pH 7.35 with a rate of 18. Bicarb of the blood gases decreased. 3. Subarachnoid hemorrhage. 4. Morbid obesity. PLAN: I agree with dialysis. Planning nutrition in the next 24 to 48 hours. We will start low-dose Diabetisource. Adjust antibiotics for renal failure. PT and supportive care. We will follow. One-half hour of critical care time. Job ID: [id number]
[2019-03-18 09:34] LABS: Glucose 605 mg/dL (70-105)
[2019-03-18] MEDS ORDERED: Iopamidol 370 76% 100 ML VIAL ONE (10:03)
--- NOTE | 2019-03-18 10:04 | ULT ---
BILATERAL LOWER EXTREMITY VENOUS MAPPING: HISTORY: End-stage renal disease. COMPARISON: None. TECHNIQUE: Johnson-scale, color-flow, and Doppler imaging with spectral wave-form analysis was performed to the lef t and right upper extremity venous system. FINDINGS: RIGHT UPPER EXTREMITY CEPHALIC VEIN Proximal humerus: Thrombus Distal humerus: Thrombus Antecubital fossa: Thrombus Proximal forearm: 3.8 mm Mid forearm: 3.1 mm Distal forearm: 3.6 mm RIGHT UPPER EXTREMITY BASILIC VEIN Proximal humerus: 5.8 mm Mid humerus: Thrombus Distal humerus: 5.5 mm Antecubital fossa: 4.1 mm Proximal forearm: 1.7 mm Mid forearm: 1.7 mm Distal forearm: 1.9 mm Brachial artery: 3.9 mm Radial artery: 2.7 mm Ulnar artery: 2.1 mm LEFT UPPER EXTREMITY CEPHALIC VEIN Proximal humerus: 2.2 mm Mid humerus: 2.0 mm Distal humerus: Thrombus Antecubital fossa: Thrombus Proximal forearm: Thrombus Mid forearm: Thrombus Distal forearm: 1.5 mm LEFT UPPER EXTREMITY BASILIC VEIN Proximal humerus: Thrombus Mid humerus: Thrombus Distal humerus: Thrombus Antecubital fossa: 4.1 mm Proximal forearm: 1.4 mm Mid forearm: 1.8 mm Distal forearm: 1.8 mm Brachial artery: 4.8 mm Radial artery: 2.8 mm Ulnar artery: 2.3 mm IMPRESSION: Venous mapping as above. POS: OFF
[2019-03-18] MEDS ORDERED: Sodium Bicarb 50 MEQ/50 ML VIAL ONE (10:14)
[2019-03-18] MEDS ORDERED: Insulin Glargine 20 UNITS in Pre-Filled Syringe 1 EACH SC SCH ×2 (10:30→21:00)
[2019-03-18] MEDS ORDERED: Sodium Bicarb 50 MEQ/50 ML VIAL IVP SCH (10:30)
[2019-03-18 10:36] LABS: Glucose 560 mg/dL (70-105)
--- NOTE | 2019-03-18 10:39 | OP ---
DATE OF PROCEDURE: 03/18/2019 PREOPERATIVE DIAGNOSES: Respiratory failure, hyperglycemia, renal failure, chronic and acute. POSTOPERATIVE DIAGNOSES: Poor intravenous access, obesity. PROCEDURE PERFORMED: Right femoral vein Trialysis catheter, left femoral vein central line, triple lumen. ANESTHESIA: 1% Xylocaine. DESCRIPTION OF PROCEDURE: The patient at the bedside in ICU. Both groins were clipped of hair, prepared with ChloraPrep and draped in routine fashion. Local anesthetic was infiltrated in the skin and subcutaneous tissue about the operative site. Left femoral vein was cannulated with a trocar catheter, J-wire threaded. Seldinger technique used to place a triple-lumen catheter, secured with 2 interrupted sutures of 3-0 silk. Sterile dressing applied. Each port aspirated and blood flushed with heparinized saline solution. Right groin had been prepared with ChloraPrep and draped in routine fashion. Femoral vein accessed with a trocar catheter, J-wire threaded. Skin site enlarged sharply. Trocar catheter removed. Small and medium-sized dilators placed over the J-wire and the femoral vein removed. Distal port of the Trialysis catheter placed over the J-wire into the femoral vein. J-wire removed. Catheter secured with 2 interrupted sutures of 3-0 silk. Sterile dressings applied. Each port aspirated with blood, flushed with heparinized saline solution. The patient tolerated the procedure well. Job ID: [id number]
--- NOTE | 2019-03-18 10:42 | CON ---
DATE OF CONSULTATION: REQUESTING PHYSICIAN: Dr. Ruiz. REASON FOR CONSULTATION: Multiple electrolyte abnormalities, severe hyperglycemia. IMPRESSION: 1. Severe hyperglycemia. This is likely in the context of hyperglycemic hyperosmolar state. Recommend continue . 2. Hypernatremia in the context of free water deficit. 3. Acute kidney injury likely hemodynamically mediated from baseline disease possibly from diabetes mellitus. 4. Severe metabolic acidosis due to . PLAN: 1. Aggressive resuscitation with IV fluid, gluten-free water. 2. Renally dose all medications and avoid potentially nephrotoxic agents. 3. The patient likely to undergo CT angio to evaluate the possible brain aneurysm. The patient does stand to risk of contrast nephropathy. However, in this modality of case, we strongly needed to adjust the management of this case. The patient to benefit from this modality of . 4. Further management to be dependent on the clinical course. HISTORY OF PRESENT ILLNESS: A 39-year-old gentleman who was brought in here with severely elevated blood sugar. The patient also noted with multiple electrolyte abnormalities including, but not limited to hypernatremia, severe hyperglycemia, excessive narcotic intake. As a result of declining renal function, decision was taken to involve Renal in the management of this case. PAST MEDICAL HISTORY: Significant for diabetes mellitus, back pain. SOCIAL HISTORY: No alcohol, no illicit drug use is recorded. ALLERGIES: NO KNOWN DRUG ALLERGIES. FAMILY HISTORY: Cannot be obtained from this patient who is intubated. SOCIAL HISTORY: Cannot be obtained from this patient who is intubated. REVIEW OF SYSTEMS: Impossible. PHYSICAL EXAMINATION: GENERAL: The patient was found to be intubated and sedated with the following vital signs. VITAL SIGNS: Blood pressure of 119/65, respiratory rate 30. HEENT: Unremarkable. CARDIOVASCULAR: First and second heart sounds were heard. RESPIRATORY: Clear to auscultation. DIGESTIVE: Revealed a benign abdomen with positive bowel sounds. EXTREMITIES: No peripheral edema. SKIN: No new gross rash. LYMPHATICS: No peripheral lymphadenopathy. SUMMARY: A 39-year-old gentleman with poorly managed diabetes who presented here acute kidney injury as well as electrolyte abnormality aggressive fluid resuscitation on this patient is most important at this point. Job ID: [id number]
[2019-03-18] MEDS: Albumin 5% 250 ML ONE (11:24)
[2019-03-18] MEDS ORDERED: Norepinephrine 8 MG in Dextrose 5% in Water 242 ML IVPB PRN (11:34)
[2019-03-18 11:37] LABS: Glucose 511 mg/dL (70-105)
[2019-03-18 12:26] LABS: Glucose 479 mg/dL (70-105)
[2019-03-18] MEDS: fentaNYL Citrate/PF 2,000 MCG in Sodium Chloride 0.9% 60 ML IV SCH (12:33)
--- NOTE | 2019-03-18 12:57 | PRG ---
DATE OF SERVICE: 03/18/2019 This is Jordin Centeno PA-C dictating a report for Jas Castellon MD. This is a 10-minute subsequent patient evaluation, in which greater than 50% of the exam was spent in counseling and coordinating the patient's care. Remainder of the exam was spent in review of the patient's medical records and formulation of treatment plan. Mr. Leung is hospital day #2 having sustained altered mental status with drug overdose and fulminant DKA. The patient's sodium has improved to 147, though it had 158 at its highest. Medically speaking, the patient has increased respiratory difficulty and he has required a significant amount of sedation in regard to that. On my exam, he is very heavily sedated. His pupils are equal, but pinpoint. He has had no movement of any of the extremities, but according to nursing care, the patient was stable overnight in regard that he was not formally following commands. He was moving all his extremities spontaneously. We will follow up on the patient's CTA of the head, but likely the patient's neurologic status is related to his medical issues including his respiratory issues. Please call with any changes in the patient's neurologic status. Otherwise, we will follow up. Job ID: [id number]
[2019-03-18 13:14] LABS: HBSAB Concentration 2.76 mIU/mL; HBSAg Index 0.34 S/CO (0-0.99); Hep B Core Total Ab Non-Reactive (NonReactive); Hep B Core Total Index 0.07 S/CO (0-0.79); Hep B Surf AB Non-Reactive (NonReactive); Hep B Surf Ag Non-Reactive S/CO (NonReactive); Hep C IgG Ab Non-Reactive (NonReactive); Hep C Index 0.55 S/CO (0-0.79)
[2019-03-18 13:35] LABS: Glucose 454 mg/dL (70-105)
[2019-03-18 14:00] LABS: Band 24 % (5-11); Hemoglobin 15.8 g/dL (14.0-18.0); Large Platelets SLIGHT; Lymphocytes 22 % (21-51); MDiff Complete? YES; Mean Corpuscular Hemoglobin 32.8 pg (27.0-31.0); Mean Corpuscular Volume 93.7 fL (78.0-98.0); Mean Platelet Volume 12.3 fL (7.4-10.4); Metamyelocyte 6 % (0-0); Monocytes 5 % (0-10); Neutrophil 43 % (42-75); Platelet Count 59 thou/uL (130-400); Platelet Morphology Comment Appears Decreased; RBC Distribution Width 13.3 % (11.5-14.5); RBC Morphology Normal; Red Blood Cell (RBC) Count 4.83 mill/uL (4.70-6.10); Vacuoles SLIGHT; White Blood Cell (WBC) Count 9.1 thou/uL (4.8-10.8)
[2019-03-18 14:28] LABS: Glucose 443 mg/dL (70-105)
--- NOTE | 2019-03-18 14:39 | PRG ---
DATE OF SERVICE: 03/18/2019 I reviewed Madhu's CTA. I am not convinced that there is an aneurysm at the anterior cerebral circulation. To me, it looks like just redundancy. His head CT demonstrates improvement in the blood burden. His main issue now is terrible diabetes. We will continue to follow closely. Job ID: [id number]
[2019-03-18] MEDS ORDERED: Heparin 10,000 UNITS/1 ML VIAL ONE (15:00)
--- NOTE | 2019-03-18 15:02 | PRG ---
DATE OF SERVICE: 03/18/2019 SUBJECTIVE: The patient is still on life support. PHYSICAL EXAMINATION: VITAL SIGNS: Noted with the following vital signs; blood pressure of 114/69, pulse of 121, O2 saturation 99% on vent. HEENT: Remarkable for endotracheal tube in place. CARDIOVASCULAR: First and second heart sounds were heard. RESPIRATORY: Ventilator sounds. DIGESTIVE: Benign abdomen. Positive bowel sounds. EXTREMITIES: No peripheral edema. SKIN: No new gross rash. LABORATORY INVESTIGATION: Creatinine of 5.77, BUN of 35, bicarb of 11, sodium 147, blood sugar is 653. IMPRESSION: 1. Worsening acute tubular necrosis. 2. Hypernatremia, improving. 3. Severe hyperglycemia. 4. Metabolic acidosis. PLAN: 1. The patient is at the point, especially given the worsening metabolic acidosis, renal replacement therapy (hemodialysis will be initiated). 2. We will continue to monitor and support the renal function of this patient with the hope of possible renal recovery to the point of not requiring continue hemodialysis. However, if renal function does not begin to improve after several days, we will begin to make arrangement for a tunneled dialysis catheter. For now, the patient continues to dialyze with temporary dialysis catheter to avoid potentially nephrotoxic agents. 3. Further management to be dependent on the clinical course. Job ID: [id number]
--- NOTE | 2019-03-18 15:18 | PDOC.HOSPP ---
- Subjective Subjective: Pt seen for followup re: DKA. Intubated, unable to complete ROS. - Objective Vital Signs & Weight: Vital Signs (12 hours) Temp Pulse Resp BP Pulse Ox 03/18/19 15:09 123 H 91/61 03/18/19 10:12 125 H 103/62 03/18/19 08:00 25 H 98 03/18/19 07:04 109 H 114/73 03/18/19 06:00 24 H 03/18/19 04:00 99.8 F H 18 Weight Admit Weight 275 lb 5.718 oz Weight 291 lb 10.745 oz Most Recent Monitor Data Heart Rate from ECG 123 NIBP 102/64 NIBP BP-Mean 76 Respiration from ECG 42 SpO2 94 I&O: 03/17/19 03/18/19 03/19/19 06:59 06:59 06:59 Intake Total 572.9 8410 2400 Output Total 1760 757 845 Balance -1187.1 7653 1555 Result Diagrams: 03/18/19 13:05 03/18/19 14:00 Additional Labs: Accuchecks 03/18/19 03/17/19 03/17/19 14:59 20:13 18:27 POC Glucose 290 H 535 H 399 H 03/17/19 03/17/19 17:04 15:53 POC Glucose 320 H 502 H labs and MARs reviewed by me EKG Reviewed by me: Yes (Tele: sBranden tach) ROS - Review of Systems All systems: All other ROS were reviewed and found negative. - Medication Medications: Active Medications Generic Name Dose Route Start Last Admin Trade Name Serina PRN Reason Stop Dose Admin Famotidine 20 mg 03/18/19 09:00 03/18/19 08:23 Pepcid SLOW IVP 20 mg DAILY YG Administration Fentanyl Citrate 2,000 mcg/ 100 mls @ 0 mls/hr 03/16/19 19:51 03/18/19 12:33 Sodium Chloride IV 04/15/19 19:51 100 mls INF YG Administration Protocol Per Protocol Insulin Human Regular 100 101 mls @ 7.07 mls/hr 03/16/19 23:00 03/17/19 22:29 units/ Sodium Chloride IVPB 101 mls INF YG Administration Protocol 7 UNITS/HR Sodium Chloride 1,000 mls @ 200 mls/hr 03/17/19 17:00 03/18/19 11:24 1/2 Normal Saline IV 1,000 mls .Q5H YG Administration Norepinephrine Bitartrate 8 mg 250 mls @ 0 mls/hr 03/18/19 11:34 03/18/19 12: 51 / Dextrose/Water IVPB 250 mls INF PRN Administration TO MAINTAIN MAP > 65 Protocol As Directed Lorazepam 2 mg 03/16/19 23:22 03/18/19 08:17 Ativan SLOW IVP 04/15/19 23:22 2 mg Q1H PRN Administration Breakthrough agitation Propofol 1,000 mg 03/16/19 23:22 03/18/19 11:25 Diprivan IV 04/15/19 23:22 1,000 mg INF PRN Administration TO ACHIEVE GOAL RASS Protocol Sodium Chloride 10 ml 03/17/19 09:00 03/18/19 11:24 Flush - Normal Saline IVF 10 ml Q12HR YG Administration - Exam NAD Eye: anicteric sclera ENT: moist mucosa Neck: no lymphadenopathy Heart: no rubs (S1, S2, tachy, reg) Respiratory: CTAB Musculoskeletal: no muscle wasting Psychiatric: lethargic Hosp A/P (1) DKA (diabetic ketoacidoses) Code(s): E11.10 - TYPE 2 DIABETES MELLITUS WITH KETOACIDOSIS WITHOUT COMA Status: Acute (2) Electrolyte abnormality Code(s): E87.8 - OTH DISORDERS OF ELECTROLYTE AND FLUID BALANCE, NEC Status: Acute (3) LINNEA (acute kidney injury) Code(s): N17.9 - ACUTE KIDNEY FAILURE, UNSPECIFIED Status: Acute (4) Intracranial bleed Code(s): I62.9 - NONTRAUMATIC INTRACRANIAL HEMORRHAGE, UNSPECIFIED Status: Acute (5) Acute respiratory failure with hypoxia Code(s): J96.01 - ACUTE RESPIRATORY FAILURE WITH HYPOXIA Status: Acute - Plan continue antibiotics, DVT proph w/SCDs continue cefepime. Pt is intubated, mechanically ventilated, in CCU. On Propofol drip for edation. Renal function worsening. On insulin drip.
[2019-03-18 15:25] LABS: Glucose 330 mg/dL (70-105)
[2019-03-18] MEDS ORDERED: Piperacillin/Tazobactam 2.25 GM in Sodium Chloride 0.9% 100 ML IVPB SCH (16:00)
[2019-03-18] MEDS: Acetaminophen 650 MG/20.3 ML UDCUP PO PRN ×2 (16:28→21:02)
[2019-03-18 16:29] LABS: Hep B Surf Ag Non-Reactive S/CO (NonReactive)
[2019-03-18 16:40] LABS: Glucose 239 mg/dL (70-105)
[2019-03-18 17:28] LABS: Glucose 490 mg/dL (70-105)
[2019-03-18 18:38] LABS: Anion Gap 23 mmol/L (10-20); BUN (Urea Nitrogen) 29 mg/dL (8.9-20.6); Calc. Creatinine Clearance 33 mL/min (70-130); Calcium 7.8 mg/dL (7.8-10.44); Carbon Dioxide 17 mmol/L (22-29); Chloride 112 mmol/L (98-107); Estimated GFR-MDRD 11; Glucose 365 mg/dL (70-105); Magnesium 1.3 mg/dL (1.6-2.6); Potassium 3.9 mmol/L (3.5-5.1); Sodium 148 mmol/L (136-145)
[2019-03-18 18:39] LABS: Phosphorus 3.1 mg/dL (2.3-4.7)
[2019-03-18] MEDS ORDERED: Sodium Chloride 0.45% 1,000 ML IV SCH (19:00)
[2019-03-18] MEDS ORDERED: Magnesium Sulfate 4 GM in Sodium Chloride 0.9% 250 ML 250 ML IVPB SCH (19:00)
[2019-03-18] MEDS: Insulin Glargine 10 UNITS in Pre-Filled Syringe 1 EACH SC SCH (19:25)
[2019-03-18] MEDS: Dextrose 5 %-0.45 % NaCl 1,000 ML IV SCH (19:32)
[2019-03-18] MEDS: Cefepime 1 GM in Sodium Chloride 0.9% 100 ML IVPB SCH (20:02)
[2019-03-19] MEDS: Propofol 1,000 MG/100 ML VIAL IV PRN ×4 (01:34→11:42)
[2019-03-19] MEDS: Dextrose 5 %-0.45 % NaCl 1,000 ML IV SCH ×2 (01:34→07:46)
[2019-03-19] MEDS: Acetaminophen 650 MG/20.3 ML UDCUP PO PRN ×2 (04:38→12:56)
[2019-03-19 05:00] LABS: Albumin 2.7 g/dL (3.5-5.0); Anion Gap 21 mmol/L (10-20); BUN (Urea Nitrogen) 36 mg/dL (8.9-20.6); BUN/Creatinine Ratio 4.88; Calc. Creatinine Clearance 26 mL/min (70-130); Calcium 7.5 mg/dL (7.8-10.44); Carbon Dioxide 19 mmol/L (22-29); Chloride 109 mmol/L (98-107); Estimated GFR-MDRD 8; Glucose 414 mg/dL (70-105); Phosphorus 4.5 mg/dL (2.3-4.7); Sodium 145 mmol/L (136-145)
[2019-03-19 05:05] LABS: FSP-Qualitative ABNORMAL (Normal); FSP-Semiquantitative >=160 & <320 mcg/mL (Less than 5); Platelet Count 38 thou/uL (130-400)
[2019-03-19 05:14] LABS: Fibrinogen 667 mg/dL (253-463)
[2019-03-19 05:15] LABS: PTT 30.4 SEC (22.9-36.1)
[2019-03-19 05:16] LABS: INR-International Normal Ratio 1.2; Prothrombin Time 15.3 SEC (12.0-14.7)
[2019-03-19 05:18] LABS: Band 8 % (5-11); Hemoglobin 13.7 g/dL (14.0-18.0); Hypochromia SLIGHT = 6-15 cells (100X) (0-5/hpf); Lymphocytes 29 % (21-51); MDiff Complete? YES; Mean Corpuscular HGB CONC 32.8 g/dL (32.0-36.0); Mean Corpuscular Hemoglobin 31.1 pg (27.0-31.0); Mean Corpuscular Volume 94.7 fL (78.0-98.0); Mean Platelet Volume 13.2 fL (7.4-10.4); Monocytes 7 % (0-10); Neutrophil 56 % (42-75); Platelet Count 38 thou/uL (130-400); Platelet Morphology Comment Appears Decreased; RBC Distribution Width 13.4 % (11.5-14.5); Red Blood Cell (RBC) Count 4.41 mill/uL (4.70-6.10); White Blood Cell (WBC) Count 8.2 thou/uL (4.8-10.8)
[2019-03-19 05:54] LABS: D-Dimer Test Greater than 20.00 *mcg/mL (0.27-0.43)
[2019-03-19 06:16] VITALS: TEMP 100.4
[2019-03-19 07:09] VITALS: BMI 432692.6
[2019-03-19 07:10] LABS: Actual Bicarbonate (HCO3a) 18.4 mEq/L (22-28); Base Excess (BEa) -7.2 mEq/L (-2.0 to +3.0); CO2 Tension 37.7 mmHg (35.0-45.0); Calcium, Ionized 0.98 mmol/L (1.12-1.30); Carboxyhemoglobin (COHb) 1.7 gm% (0.0-3.0); Hemoglobin (Hb) 14.2 g/dL (14.0-18.0); Potassium - ABG Lab 4.07 mmol/L (3.70-5.30); pH, Arterial 7.31 (7.35-7.45)
[2019-03-19 07:27] LABS: ALV-art Gradient 181.775 (0-20); O2 Tension (PaO2) 56.3 mmHg (80.0-100.0); Puncture Site RR
[2019-03-19] MEDS: Lorazepam 2 MG/ML VIAL SLOW IVP PRN ×3 (07:45→12:52)
[2019-03-19] MEDS: Famotidine/PF 20 mg/2ml Vial SLOW IVP SCH (07:45)
[2019-03-19] MEDS: Cefepime 1 GM in Sodium Chloride 0.9% 100 ML IVPB SCH (07:46)
[2019-03-19] MEDS: HUMULIN R 100 UNITS in Sodium Chloride 0.9% 100 ML IVPB SCH (07:46)
[2019-03-19] MEDS ORDERED: Sodium Chloride 0.45% 1,000 ML IV SCH (08:30)
--- NOTE | 2019-03-19 08:47 | PRG ---
DATE OF SERVICE: 03/19/2019 SUBJECTIVE: Eber Leung remains intubated in the vent and sedated. OBJECTIVE: VITAL SIGNS: His blood pressure is still low at 90/60, pulse 118, respirations about 30, saturations are 93-94%. His I's and O's have been poor. Urine output is decreased. CHEST: Decreased breath sounds. No wheezing. CARDIAC: Sinus tach. ABDOMEN: Soft. LABORATORY DATA: White count 8000, H and H stable, platelet count is still low at 38,000. A DIC panel is negative for DIC. His PO2 was 56, pCO2 43 ph 7.34_ at a rate of 20-40% bilevel 30/8, creatinine is 7.3, BUN is 36. His anion gap is 21, bicarb is 19, still low, glucose 449. Albumin is 2.7. IMPRESSION: 1. Respiratory failure. 2. Renal failure. 3. Uncontrolled diabetes. 4. Metabolic encephalopathy. 5. Status post fall. 6. Small subdural. He is not weanable. Continue nutrition. His anion gap is better. We will increase his Lantus to 30 twice a day. We will try and discontinue his insulin drip. Accu-Cheks q.4 hours. Aggressive scale. PT, nutrition and supportive care. One half hour critical time. We will follow. Job ID: [id number] [facility]
--- NOTE | 2019-03-19 08:51 | PRG ---
DATE OF SERVICE: 03/19/2019 This is Jordin Centeno PA-C dictating a report for Jas Castellon MD. This is a 10-minute subsequent patient evaluation, in which greater than 50% of the exam was spent counseling and coordinating the patient's care. Remainder of the exam was spent in review of the patient's medical records and formulation of treatment plan. Dr. Castellon and I have reviewed Mr. Leung's CTA and there is no evidence for obvious aneurysm. However, there is a tuft of vessels present that is slightly difficult to visualize. Therefore, we will repeat a CTA in the next few weeks. In regard to the patient's subarachnoid hemorrhage, this has improved compared to his initial presenting CT scan. The ventricles are within normal limits. The patient, according to nursing team, has improved in regard to his respiratory status. He remains on sedation, so therefore is not moving his extremities at this time. His pupils are pinpoint, but equal. According to nursing, however, he is able to move all extremities equally, though was not formally following commands. His altered mental status is likely related to his diabetic ketoacidosis and respiratory issues. At this time, Neurosurgery will sign off. Please call with any changes in patient's neurologic status. Otherwise, we will schedule followup CTA in the next few weeks. Job ID: [id number]
[2019-03-19] MEDS ORDERED: Insulin Glargine 30 UNITS in Pre-Filled Syringe 1 EACH SC SCH (09:00)
[2019-03-19 09:03] LABS: Hemoglobin 13.9 g/dL (14.0-18.0); Mean Corpuscular HGB CONC 34.3 g/dL (32.0-36.0); Mean Corpuscular Hemoglobin 32.6 pg (27.0-31.0); Mean Corpuscular Volume 95.1 fL (78.0-98.0); Mean Platelet Volume 13.4 fL (7.4-10.4); Platelet Count 37 thou/uL (130-400); RBC Distribution Width 13.4 % (11.5-14.5); Red Blood Cell (RBC) Count 4.25 mill/uL (4.70-6.10); White Blood Cell (WBC) Count 9.2 thou/uL (4.8-10.8)
--- NOTE | 2019-03-19 09:23 | RAD ---
PORTABLE CHEST: Date: 03/19/19 HISTORY: Respiratory distress. COMPARISON: Prior day's study. FINDINGS: The endotracheal tube remains in satisfactory position. Opacification of the right base has definitel y improved, suggesting some resolving atelectasis. The atelectatic changes in the left base are stabl e. IMPRESSION: Improving atelectatic change of the right lower lobe. POS: [facility]
[2019-03-19 09:24] LABS: Anion Gap 22 mmol/L (10-20); BUN (Urea Nitrogen) 40 mg/dL (8.9-20.6); Calc. Creatinine Clearance 26 mL/min (70-130); Calcium 7.4 mg/dL (7.8-10.44); Carbon Dioxide 17 mmol/L (22-29); Chloride 107 mmol/L (98-107); Estimated GFR-MDRD 8; Glucose 455 mg/dL (70-105); Potassium 4.3 mmol/L (3.5-5.1); Sodium 142 mmol/L (136-145)
[2019-03-19 09:53] LABS: Band 23 % (5-11); Eosinophils 1 % (0-10); Lymphocytes 21 % (21-51); MDiff Complete? YES; Monocytes 5 % (0-10); Neutrophil 50 % (42-75); Platelet Morphology Comment Appears Decreased; RBC Morphology Normal
[2019-03-19] MEDS: Cefepime 0.5 GM, Admixture Fee 1 EACH in Sodium Chloride 0.9% 100 ML IVPB SCH ×2 (09:59→11:41)
[2019-03-19] MEDS ORDERED: Rocuronium Bromide 10 MG/ML (10ML VIAL) ONE (12:00)
[2019-03-19] MEDS ORDERED: Lidocaine 2% Jelly 5 ML TUBE ONE (12:00)
[2019-03-19] MEDS ORDERED: Amiodarone 150 MG/3 ML VIAL ONE (12:00)
[2019-03-19] MEDS ORDERED: EPINEPHrine 1 MG/10 ML Abboject SYRINGE ONE ×2 (12:00→16:47)
[2019-03-19] MEDS ORDERED: Calcium Chloride 1 GM/10 ML Abboject SYRINGE ONE (12:00)
[2019-03-19] MEDS ORDERED: Sodium Bicarb 50 MEQ/50 ML Abboject 8.4% SYRINGE ONE (12:00)
[2019-03-19] MEDS ORDERED: PROPOFOL 200 MG/20 ML VIAL ONE (12:00)
[2019-03-19] MEDS ORDERED: Succinylcholine Chloride 20 MG/ML 10 ml SYRINGE FS ONE (12:00)
[2019-03-19] MEDS ORDERED: EPINEPHrine 1 mg/ml MDV (1ml Charge) ONE (12:00)
[2019-03-19] MEDS ORDERED: Vecuronium 10 MG VIAL IV PRN (13:35)
[2019-03-19] MEDS ORDERED: Vecuronium 10 MG VIAL ONE (13:36)
[2019-03-19] MEDS: fentaNYL Citrate/PF 2,000 MCG in Sodium Chloride 0.9% 60 ML IV SCH (13:42)
[2019-03-19 14:08] LABS: Actual Bicarbonate (HCO3a) 22.1 mEq/L (22-28); Base Excess (BEa) -9.8 mEq/L (-2.0 to +3.0); Calcium, Ionized 1.02 mmol/L (1.12-1.30); Hemoglobin (Hb) 15.7 g/dL (14.0-18.0); O2 Tension (PaO2) 65.5 mmHg (80.0-100.0); Potassium - ABG Lab 4.51 mmol/L (3.70-5.30)
[2019-03-19 14:11] LABS: pH, Arterial 7.07 (7.35-7.45)
[2019-03-19 14:12] LABS: ALV-art Gradient 550.625 (0-20); CO2 Tension 77.5 mmHg (35.0-45.0); Puncture Site RRA
[2019-03-19 14:33] LABS: Anion Gap 23 mmol/L (10-20); BUN (Urea Nitrogen) 36 mg/dL (8.9-20.6); Calc. Creatinine Clearance 28 mL/min (70-130); Calcium 7.9 mg/dL (7.8-10.44); Carbon Dioxide 19 mmol/L (22-29); Chloride 103 mmol/L (98-107); Estimated GFR-MDRD 9; Glucose 374 mg/dL (70-105); Potassium 4.2 mmol/L (3.5-5.1); Sodium 141 mmol/L (136-145)
[2019-03-19] MEDS ORDERED: Albumin 5% 500 ML ONE (14:41)
--- NOTE | 2019-03-19 14:51 | RAD ---
RADIOGRAPH CHEST 1 VIEW: Date: 03/19/19 Time: 1:51 p.m. HISTORY: 39-year-old male in respiratory distress. No other clinical information available. COMPARISON: 03/19/19, 4:59 a.m. FINDINGS: Interval worsening of opacification of left lung base, now with complete silhouetting of left hemidia phragm. Mild haziness of visualized portion of right medial base unchanged. Endotracheal tube remains . No pneumothorax. Upper lobes are clear. IMPRESSION: Interval worsening of aeration of the left lower lobe. JN [] POS: OFF
--- NOTE | 2019-03-19 14:56 | ULT ---
EXAM: Bilateral lower extremity venous Doppler US HISTORY: bilateral lower extremity edema and pain FINDINGS: Grayscale, color-flow, Doppler evaluation, spectral analysis of the bilateral lower extremities venou s structures is performed with 2-D imaging. The bilateral common femoral, superficial femoral, popliteal, posterior tibial, proximal greater saphenous and profunda femoral veins are imaged. There is normal luminal compressibility, flow, and augmentation in the visualized deep venous structu res of the bilateral lower extremities. IMPRESSION: No evidence of a deep vein thrombosis in either lower extremity.
[2019-03-19] MEDS ORDERED: Vasopressin 40 UNIT, Admixture Fee 1 EACH in Sodium Chloride 0.9% 100 ML IV SCH (15:15)
[2019-03-19 15:43] VITALS: BP 74/48
[2019-03-19] MEDS ORDERED: Hydrocortisone Sod Succ/PF 100 mg/2 ml Vial ONE (15:45)
[2019-03-19] MEDS: Albumin 5% 250 ML ONE (15:51)
[2019-03-19] MEDS ORDERED: Sodium Bicarb 50 MEQ/50 ML VIAL ONE ×3 (15:52→16:47)
[2019-03-19] MEDS ORDERED: Hydrocortisone Sod Succ/PF 100 mg/2 ml Vial IVP SCH (16:00)
[2019-03-19] MEDS ORDERED: EPINEPHrine 1 MG/ML AMP ONE (16:11)
[2019-03-19 16:22] LABS: Actual Bicarbonate (HCO3a) 20.8 mEq/L (22-28); Base Excess (BEa) -18.4 mEq/L (-2.0 to +3.0); Calcium, Ionized 1.17 mmol/L (1.12-1.30); Potassium - ABG Lab 5.58 mmol/L (3.70-5.30)
[2019-03-19 16:25] LABS: CO2 Tension 166.7 mmHg (35.0-45.0); pH, Arterial 6.72 (7.35-7.45)
[2019-03-19 16:26] LABS: ALV-art Gradient 457.425 (0-20); O2 Tension (PaO2) 47.2 mmHg (80.0-100.0); Puncture Site RRA
[2019-03-19] MEDS ORDERED: SODIUM BICARBONATE IV SCH (16:30)
[2019-03-19] MEDS ORDERED: SODIUM CHLORIDE 0.45% IV SCH (16:30)
[2019-03-19] MEDS ORDERED: Budesonide 0.5 MG/2 ML NEB INH SCH (18:30)
--- NOTE | 2019-03-20 08:00 | PRG ---
DATE OF SERVICE: CPR NOTE: This is a prolonged CPR note for at least 45 minutes. The patient was a 39-year-old gentleman, who was admitted to the hospital with uncontrolled diabetes, respiratory failure, who around about 1 o'clock this afternoon started to develophypotension and dyspnoe. Emergency blood gases revealed severe respiratory acidosis. He was agonal. He was started on vecuronium paralytic, given bicarb, started on vasopressors including Levophed, eventually vasopressin, eventually Tj-Synephrine. Despite all of these, blood pressure continued to drop. He was given some 500 mL of Plasmanate, IV fluids. At about 3:45, he slowly became bradycardic. CPR was initiated about 4 p.m., ongoing CPR for at least 45 minutes with numerous times of epinephrine at least 10, at least 7 amps of bicarb, 1 amp of calcium, 1 amp of glucagon, 1 amp of magnesium. Very briefly for about 5 minutes, we were surprised to get a rhythm and a blood pressure of at [id number]_ systolic. Repeat blood gases showed severe acidosis. He was given additional 2 amps of bicarb. His pH was 6.72 and at that time we got some rhythm with pO2 of 47 and pCO2 of 166. Emergency echo was obtained while he had a blood pressure, which showed that his right ventricle was dilated, but there was no evidence of any tamponade. Echo was ordered just to rule out any tamponade. multiple cardioversions attempted He had already done ultrasound of the leg, which showed no evidence of any pulmonary emboli. I went and spoke to his mother at length that we were trying everything possible to try and save the son, unfortunately became asystolic again. Second time, round of CPR was initiated with ongoing extensive support with multiple pressors, epinephrine, bicarb gain, hydrocortisone 100 mg was given. Despite of these, we were not able to revive him. After prolonged CPR, he had an asystolic rhythm. He was pronounced at 4:45 p.m. on 03/19/2019. His mother is at the bedside. We asked whether she wanted an autopsy to find out exact cause of his shock syndrome. Body was released to the home. FINAL DIAGNOSES: 1. Uncontrolled diabetes. 2. Acute renal failure. 3. Subarachnoid hemorrhage from a fall. 4. Prolonged CPR, shock exact etiology unclear. Job ID: [id number] [facility]
--- NOTE | 2019-03-20 10:13 | DIS ---
DATE OF ADMISSION: 03/16/2019 DATE OF DISCHARGE: 03/19/2019 SUMMARY: PRIMARY CARE PROVIDER: None. DATE OF : The patient on March 19, 2019. DIAGNOSES: 1. Acute respiratory failure. 2. Acute metabolic encephalopathy. 3. Intracranial hemorrhage. 4. Diabetic ketoacidosis. 5. Acute kidney injury. CONSULTATIONS DURING THIS HOSPITALIZATION: 1. Nephrology, Dr. Cintron. 2. Pulmonary Critical Care Medicine, Dr. Weinstein. 3. Neurosurgery, Dr. Castellon. HOSPITAL COURSE: Mr. Leung is a 39-year-old gentleman, who was admitted to [facility] on March 17, 2019 for acute respiratory failure, anion gap metabolic acidosis, subarachnoid hemorrhage, and acute kidney injury. Please refer to Dr. Ruiz's history and physical note dated March 24, 2019. He was intubated and managed in the critical care unit. He was seen by Neurosurgery Service for subarachnoid hemorrhage. He had CT [place] angiogram with contrast, which showed prominent redundancy and tortuosity of the small anterior circulation vasculature at the region of the convergence of the anterior communicating artery bilaterally. The patient also had worsening renal failure and was started on hemodialysis after placement of right femoral vein Trialysis catheter by Dr. Godinez. The patient continued to decline. On March 19, the patient started to develop hypotension and dyspnea. He was found to be in severe respiratory acidosis and agonal. Code was called and CPR was initiated. He received multiple medications during the code. Unfortunately, the code was unsuccessful and the patient at 4:45 p.m. on March 19, 2019. Job ID: [id number]
[2019-03-20] MEDS ORDERED: Heparin 10,000 UNITS/ 10 ML VIAL ONE (14:12)
--- NOTE | 2019-03-25 13:54 | EKG ---
Test Reason : Blood Pressure : / mmHG Vent. Rate : 130 BPM Atrial Rate : 130 BPM P-R Int : 128 ms QRS Dur : 092 ms QT Int : 316 ms P-R-T Axes : 065 130 022 degrees QTc Int : 465 ms Sinus tachycardia Possible Left atrial enlargement Left posterior fascicular block Cannot rule out Inferior infarct , age undetermined Abnormal ECG Confirmed by JEANE STEARNS, MIREILLE ([id number]), purchasing expeditor BLACK AQUINO ([id number]) on 03/25/2019 1:53:19 PM Referred By: Confirmed By:MIREILLE CHING MD
== END 2019-03-19 16:45 | disposition expired | DRG 208 ==
LOC: ERS 19:22 → CCU 23:14
PROVIDERS: ADMIT Family Medicine; ATTEND Family Medicine
PROC: 0BH17EZ Insertion of Endotracheal Airway into Trachea, Via Natural or Artificial Opening (ICD-10-PCS; principal; 2019-03-16)
PROC: 5A1945Z Respiratory Ventilation, 24-96 Consecutive Hours (ICD-10-PCS; 2019-03-16)
PROC: 06HY33Z Insertion of Infusion Device into Lower Vein, Percutaneous Approach (ICD-10-PCS; 2019-03-18)
PROC: 3E033XZ Introduction of Vasopressor into Peripheral Vein, Percutaneous Approach (ICD-10-PCS; 2019-03-19)
PROC: 5A12012 Performance of Cardiac Output, Single, Manual (ICD-10-PCS; 2019-03-19)
PROC: 5A2204Z Restoration of Cardiac Rhythm, Single (ICD-10-PCS; 2019-03-19)
PROC: 5A1D70Z Performance of Urinary Filtration, Intermittent, Less than 6 Hours Per Day (ICD-10-PCS; 2019-03-19)
DX: J96.01 Acute respiratory failure with hypoxia (principal); S06.6X9A Traumatic subarachnoid hemorrhage with loss of consciousness of unspecified duration, initial encounter; E11.10 Type 2 diabetes mellitus with ketoacidosis without coma; N17.0 Acute kidney failure with tubular necrosis; G93.41 Metabolic encephalopathy; N17.9 Acute kidney failure, unspecified; E87.0 Hyperosmolality and hypernatremia; Z68.41 Body mass index [BMI] 40.0-44.9, adult; R57.9 Shock, unspecified; T40.2X1A Poisoning by other opioids, accidental (unintentional), initial encounter; E86.0 Dehydration; G89.29 Other chronic pain; E66.01 Morbid (severe) obesity due to excess calories; W18.30XA Fall on same level, unspecified, initial encounter; Z98.890 Other specified postprocedural states; Y93.89 Activity, other specified; Y92.009 Unspecified place in unspecified non-institutional (private) residence as the place of occurrence of the external cause
CPT/HCPCS: 31500; 36415; 36416; 51702; 70450; 70496; 71045; 72125; 76770; 80048; 80053; 80069; 80306; 80307; 81003; 81015; 82010; 82550; 82805; 82947; 83036; 83690; 83735; 83880; 83930; 84100; 84443; 84484; 85025; 85049; 85300; 85362; 85379; 85384; 85610; 85730; 86704; 86706; 86803; 87040; 87340; 90935; 93005; 93306; 93970; 94002; 94003; 94640; 96360; 96361; A4217; C1752; G0257; G0365; J0131; J0171; J0282; J0692; J1610; J1642; J1644; J1720; J1815; J2060; J2370; J2543; J2704; J3010; J3475; J3480; J3490; J7050; J7070; J7620; P9045; Q9967; S0028